=== PATIENT | female | born 1990 | race Caucasian/White ===

== ENCOUNTER 2017-01-09 20:56 | Emergency (ER) | payer MEDICAID ==
[~2017-01-09 20:56] MED LIST: ADULT ASPIRIN81 MG; EPIPEN0.3 MG/0.3 IM; LEXAPRO10 MG; NORCO 5-325 TA1 EACH PO; ORTHO TRI-7 DAYS X; PREDNISONE10 MG PO; PROAIR HFA8.5 GM INH
[2017-01-09] MEDS ORDERED: KLONOPIN1 M1 PO (21:27)
[2017-01-09] MEDS ORDERED: ZOLOFT50 M1 PO (21:33)
[2017-01-09] MEDS ORDERED: TRAZODONE HCL100 M1 PO (21:34)
[2017-01-09] MEDS ORDERED: PREDNISONE20 M1 PO (21:44)
[2017-01-09] MEDS ORDERED: VIBRAMYCIN100 M1 PO (21:44)
== END 2017-01-09 21:49 ==
LOC: EDMED 20:56
DX: S80.861A Insect bite (nonvenomous), right lower leg, initial encounter (principal); F41.9 Anxiety disorder, unspecified; Z79.899 Other long term (current) drug therapy; F32.9 Major depressive disorder, single episode, unspecified; Z88.6 Allergy status to analgesic agent; Z72.0 Tobacco use; W57.XXXA Bitten or stung by nonvenomous insect and other nonvenomous arthropods, initial encounter